=== PATIENT | female | born 1980 | race Caucasian/White ===

== ENCOUNTER 2018-11-22 18:17 | Emergency (ER) | payer MEDICAID ==
[2018-11-22 19:41] LABS: URINE BLOOD (Dip) POC Negative (NEGATIVE); URINE KETONES (Dip) POC Negative (NEGATIVE); URINE LEUKOCYTE EST (Dip) POC Negative (NEGATIVE); URINE NITRITE (Dip) POC Negative (NEGATIVE); URINE TOTAL PROTEIN POC Negative (NEGATIVE)
[2018-11-22 19:41] LABS: URINE PH (Dip) POC 5.5 (5.0-8.5)
[2018-11-22] MEDS: KETOROLAC 30 MG INJ IM (19:50)
== END 2018-11-22 20:02 | disposition home or self-care (01) ==
LOC: FTE 18:17
DX: K08.89 Other specified disorders of teeth and supporting structures (principal)
CPT/HCPCS: 81003; 81025; 96372; 99284-25